=== PATIENT | female | born 1970 | race American Indian/Alaskan Native ===

== ENCOUNTER 2017-09-11 00:25 | Emergency (ER) | payer SELFPAY ==
[2017-09-11] MEDS ORDERED: DUONEB *Not for PRN Use IH ONE ×2 (00:34→00:39)
[2017-09-11] MEDS ORDERED: PEPCID PO ONE (00:37)
[2017-09-11] MEDS ORDERED: PEPCID ONE (00:38)
[2017-09-11] MEDS ORDERED: BENADRYL PO ONE ×2 (00:38)
[2017-09-11 01:18] VITALS: BP 157/87
--- NOTE | 2017-09-11 02:03 | Emergency Department Report ---
HPI - General Chief Complaint: Allergic Reaction Time Seen by Provider: 09/11/17 01:48 - HPI HPI: Patient 46-year-old -[place]i female history of hypertension since the ED tonight status post allergic reaction after eating food at a barbecue states she ate a hotdog and baked beans thyromegaly home she felt her stroke start to swell so she presented to ED. Patient states unsure of trigger denies chest pain or shortness of breath at this time no nausea vomiting no back pain or dizziness no lightheadedness ED Past Medical Hx - Past Medical History Hx Hypertension: Yes - Medications Home Medications: Home Medications Medication Instructions Recorded Confirmed Last Taken Type EPINEPHrine [Epipen 2-Miguel Ángel] 0.3 mg IJ PRN PRN #1 kit 09/11/17 Unknown Rx Famotidine [Pepcid] 20 mg PO BID #14 tablet 09/11/17 Unknown Rx Hydrochlorothiazide [HCTZ] 25 mg PO QDAY 09/11/17 09/11/17 1 Day Ago History ~09/10/17 diphenhydrAMINE [Benadryl CAP] 25 mg PO Q6HR PRN #28 capsule 09/11/17 Unknown Rx predniSONE [Deltasone] 40 mg PO DAILY #10 tab 09/11/17 Unknown Rx ED Review of Systems ROS: Stated complaint: ALLERGIC REACTION Other details as noted in HPI Constitutional: denies: chills, fever Eyes: denies: eye pain, eye discharge, vision change ENT: throat pain. denies: ear pain Respiratory: denies: cough, shortness of breath, wheezing Cardiovascular: denies: chest pain, palpitations Endocrine: no symptoms reported Gastrointestinal: denies: abdominal pain, nausea, diarrhea Genitourinary: denies: urgency, dysuria, discharge Musculoskeletal: denies: back pain, joint swelling, arthralgia Skin: denies: rash, lesions Neurological: denies: headache, weakness, paresthesias Psychiatric: denies: anxiety, depression Hematological/Lymphatic: denies: easy bleeding, easy bruising Physical Exam - Physical Exam Vital Signs: Vital Signs 09/11/17 09/11/17 00:29 01:18 Pulse Rate 99 H 90 Respiratory 22 18 Rate Blood Pressure 197/113 Blood Pressure 157/87 [Left] O2 Sat by Pulse 100 100 Oximetry Physical Exam: Airway an outpatient and no stridor no exudate no lesions uvula is midline no swelling lungs are clear bilateral lungs no wheezing patient up on a chair elevated fast track him back to room without shortness of breath or wheezing discuss anaphylacxis and use of EpiPen with patient patient verbalizes understanding and agreement with saline bowel sounds noticed stable patient with no acute distress at this time will be discharged home in stable condition there is no tongue swelling no shortness of breath no chest pain no nausea vomiting patient is a and O 3 and was oriented with no acute distress at this time ED Course Vital Signs 09/11/17 09/11/17 00:29 01:18 Pulse Rate 99 H 90 Respiratory 22 18 Rate Blood Pressure 197/113 Blood Pressure 157/87 [Left] O2 Sat by Pulse 100 100 Oximetry ED Medical Decision Making - Medical Decision Making allergic reaction ,symptoms resolved Critical care attestation.: If time is entered above; I have spent that time in minutes in the direct care of this critically ill patient, excluding procedure time. ED Disposition Clinical Impression: Allergic reaction Qualifiers: Encounter type: initial encounter Qualified Code(s): T78.40XA - Allergy, unspecified, initial encounter Disposition: - TO HOME OR SELFCARE Is pt being admited?: No Does the pt Need Aspirin: No Condition: Good Instructions: Anaphylaxis (ED), Allergies (ED), Epinephrine (Injection) Prescriptions: diphenhydrAMINE [Benadryl CAP] 25 mg PO Q6HR PRN #28 capsule PRN Reason: allergies EPINEPHrine [Epipen 2-Miguel Ángel] 0.3 mg IJ PRN PRN #1 kit PRN Reason: allergies Famotidine [Pepcid] 20 mg PO BID #14 tablet predniSONE [Deltasone] 40 mg PO DAILY #10 tab Referrals: [facility] [Outside] - 3-5 Days Forms: Work/School Release Form(ED) Time of Disposition: 02:08
== END 2017-09-11 02:14 | disposition home or self-care (01) ==
LOC: ED 00:25
DX: T78.40XA Allergy, unspecified, initial encounter (principal); I10 Essential (primary) hypertension
CPT/HCPCS: 96372; 99283; J2930

== ENCOUNTER 2017-09-20 22:35 | Emergency (ER) | payer SELFPAY ==
[2017-09-20] MEDS ORDERED: BENADRYL ONE (22:41)
[2017-09-20] MEDS ORDERED: PEPCID IV ONE (22:42)
[2017-09-20] MEDS ORDERED: BENADRYL IV ONE (22:57)
[2017-09-20] MEDS ORDERED: PEPCID PO ONE (22:57)
--- NOTE | 2017-09-21 05:37 | Emergency Department Report ---
ED Allergic Reaction HPI - General Chief complaint: Allergic Reaction Stated complaint: ALLERGIC REACTION Time Seen by Provider: 09/21/17 05:36 Source: patient, family Mode of arrival: Ambulatory Limitations: No Limitations - History of Present Illness Initial Comments: Patient here report that she had allergic reaction to [id number] Zantac, she ports on around her face and her throat. Patient was given Solu-Medrol, Benadryl and Pepcid IV and triage area. Patient said this is the second time this happens her over the last couple weeks that she found that she was allergic to red dye and she was here on 09/11/2017 where they treated her for allergic reaction and gave her EpiPen 2 pack. She denies any chest pain or tightness. Denies any stridor or wheezing. Denies any swelling of the throat but she says she felt like her throat was scratchy. She did not follow-up as instructed. Pain is 0-10. Denies any fevers chills or shortness of breath. Patient blood pressure is 170/108 with history of high blood pressure she says she takes hydrochlorothiazide and her blood pressure is usually stable. She also did not fill her EpiPen. MD Complaint: allergic reaction, facial swelling -: This morning Exposure: medication Symptoms: facial swelling (itchy throat) Severity: moderate - Related Data Home Medications Medication Instructions Recorded Confirmed Last Taken Hydrochlorothiazide [HCTZ] 25 mg PO QDAY 09/11/17 09/11/17 1 Day Ago ~09/10/17 Previous Rx's Medication Instructions Recorded Last Taken Type EPINEPHrine [Epipen 2-Miguel Ángel] 0.3 mg IJ PRN PRN #1 kit 09/11/17 Unknown Rx Famotidine [Pepcid] 20 mg PO BID #14 tablet 09/11/17 Unknown Rx predniSONE [Deltasone] 40 mg PO DAILY #10 tab 09/11/17 Unknown Rx Cetirizine HCl [ZyrTEC] 10 mg PO QAM 7 Days #7 capsule 09/21/17 Unknown Rx Prednisone [predniSONE 10 mg 10 mg PO .TAPER 6 Days #1 tab.ds.pk 09/21/17 Unknown Rx (6-Day Pack, 21 Tabs)] diphenhydrAMINE [Benadryl CAP] 50 mg PO Q6HR PRN #16 capsule 09/21/17 Unknown Rx Allergies Allergy/AdvReac Type Severity Reaction Status Date / Time ranitidine [From Zantac] Allergy Swelling Verified 09/21/17 07:34 red dye AdvReac Anaphylaxis Verified 09/21/17 07:34 ED Review of Systems ROS: Stated complaint: ALLERGIC REACTION Other details as noted in HPI Constitutional: denies: chills, fever Eyes: denies: eye pain, eye discharge, vision change ENT: other (scratchy throat and facial swelling to right face. This occurred 1 hour after taking Zantac). denies: ear pain, throat pain, hearing loss, epistaxis, congestion Respiratory: denies: cough, shortness of breath, SOB with exertion, SOB at rest , stridor, wheezing Cardiovascular: denies: chest pain, palpitations, edema, syncope, paroxysmal nocturnal dyspnea Gastrointestinal: denies: abdominal pain, nausea, vomiting, diarrhea Musculoskeletal: denies: back pain, joint swelling, arthralgia Skin: pruritus. denies: rash, lesions Neurological: denies: headache, weakness, numbness, paresthesias, confusion, abnormal gait, vertigo ED Past Medical Hx - Past Medical History Previous Medical History?: Yes Hx Hypertension: Yes Hx GERD: Yes - Surgical History Past Surgical History?: Yes Additional Surgical History: x2 - Family History Family history: diabetes, hypertension - Social History Smoking Status: Never Smoker Substance Use Type: None - Medications Home Medications: Home Medications Medication Instructions Recorded Confirmed Last Taken Type EPINEPHrine [Epipen 2-Miguel Ángel] 0.3 mg IJ PRN PRN #1 kit 09/11/17 Unknown Rx Famotidine [Pepcid] 20 mg PO BID #14 tablet 09/11/17 Unknown Rx Hydrochlorothiazide [HCTZ] 25 mg PO QDAY 09/11/17 09/11/17 1 Day Ago History ~09/10/17 predniSONE [Deltasone] 40 mg PO DAILY #10 tab 09/11/17 Unknown Rx Cetirizine HCl [ZyrTEC] 10 mg PO QAM 7 Days #7 capsule 09/21/17 Unknown Rx Prednisone [predniSONE 10 mg 10 mg PO .TAPER 6 Days #1 tab.ds.pk 09/21/17 Unknown Rx (6-Day Pack, 21 Tabs)] diphenhydrAMINE [Benadryl CAP] 50 mg PO Q6HR PRN #16 capsule 09/21/17 Unknown Rx ED Physical Exam - General Limitations: No Limitations General appearance: alert, in no apparent distress - Head Head exam: Present: atraumatic, normocephalic, normal inspection - Eye Eye exam: Present: normal appearance, PERRL, EOMI. Absent: nystagmus Pupils: Present: normal accommodation - ENT ENT exam: Present: normal orophraynx, mucous membranes moist, TM's normal bilaterally, normal external ear exam, other (right facial swelling and without any erythema or induration.) - Expanded ENT Exam Expanded Ear exam: Present: normal external inspection Mouth exam: Present: normal external inspection, tongue normal. Absent: drooling, trismus, muffled voice, tongue elevation, laceration Teeth exam: Present: normal inspection Throat exam: Positive: normal inspection. Negative: tonsillar erythema, tonsillomegaly, tonsillar exudate, R peritonsillar mass, L peritonsillar mass - Neck Neck exam: Present: normal inspection, full ROM, other (no C-spine tenderness). Absent: tenderness, meningismus, lymphadenopathy - Expanded Neck Exam Expanded Neck exam: Absent: tenderness, midline deformity, anterior neck swelling, tracheal deviation - Respiratory Respiratory exam: Present: normal lung sounds bilaterally. Absent: respiratory distress, wheezes, stridor, chest wall tenderness, accessory muscle use, decreased breath sounds, prolonged expiratory - Cardiovascular Cardiovascular Exam: Present: regular rate, normal rhythm, normal heart sounds. Absent: systolic murmur, diastolic murmur - GI/Abdominal GI/Abdominal exam: Present: soft, normal bowel sounds. Absent: tenderness - Extremities Exam Extremities exam: Present: normal inspection, full ROM, normal capillary refill , other (no clubbing, cyanosis or edema. +2 pulses all extremities and no neurovascular compromise). Absent: tenderness, pedal edema, joint swelling, calf tenderness - Back Exam Back exam: Present: normal inspection, full ROM. Absent: tenderness - Neurological Exam Neurological exam: Present: alert, oriented X3, normal gait, reflexes normal. Absent: motor sensory deficit - Psychiatric Psychiatric exam: Present: normal affect, normal mood - Skin Skin exam: Present: warm, dry, intact, normal color. Absent: rash ED Course Vital Signs 09/20/17 09/21/17 22:54 06:22 Temperature 98.3 F 97.7 F Pulse Rate 106 H 99 H Respiratory 18 17 Rate Blood Pressure 170/108 Blood Pressure 138/94 [Right] O2 Sat by Pulse 100 100 Oximetry - Reevaluation(s) Reevaluation #1: 09/20/17 23:40 Patient with allergic reaction with facial swelling and she received Solu- Medrol 125 mg IV, Pepcid 20 mg IV and Benadryl 50 mg IV with relief. She says she feels better. We'll monitor Reevaluation #2: 09/20/17 01:32 Patient is stable, allergic reaction subsided, no coughing. Lung sounds are clear. No distress. Reevaluation #3: 09/21/17 05:42 Patient stable without any recurrence of allergic reaction. Oral airways patent , uvula is midline. No stridor or wheezing and she says she feels much better. Reevaluation #4: 09/21/17 07:25 Patient stable and observed in the emergency room with no recurrence of allergic reaction. ED Medical Decision Making - Medical Decision Making ED course: This is a 46-year-old female here report that she has allergic reaction from Zantac. She was here on 09/11/2017 reported that she had allergic reaction to red dye she was treated and placed on Benadryl and Medrol Dosepak. She was also given EpiPen which she says she did not fill. Patient present to the emergency room with facial swelling on the right side and complaining that she has some scratchy throat. She did not take any medication for allergic reaction prior to coming to the emergency room per patient. Patient did not follow-up as instructed from her last allergic reaction. This patient was seen and examined by myself. She had facial swelling on the right side without any other abnormalities. She had no oral mucosa abnormality and her lungs were clear. Blood pressure was elevated. She was treated with Benadryl, Solu-Medrol and Pepcid and observed in emergency room and she has no recurrence of allergic reaction. Blood pressure and heart rate is better and she says she is feeling a lot better. Diagnosis discussed the patient. She voiced understanding . A/P 1: Allergic reaction secondary to Zantac per patient 2: Facial swelling from allergic reaction Medication given in emergency room: Patient given and Solu-Medrol 125 mg IV, Benadryl 50 mg IV and Pepcid 20 mg IV for resolution of swelling to facial area. She has no symptoms of allergy. Her lung sounds are clear, no stridor, no wheeze and no coughing. She denies scratchy throat. She says she feels much better. She was observed for several hours after given Solu-Medrol and she is stable. Discharge prescription: Given prescription for prednisone Dosepak, Benadryl and Pepcid. She did not fill her EpiPen 2 packs I told her that she needs to go ahead and fill the prescription. Educated on medication, diagnosis, need to follow up with specialists for allergy testing. Need to follow-up with primary care and she does not have a primary care side told her she is to follow-up with outside [facility]. Educated on the need to keep her EpiPen since she's been having allergic reaction and she hasn't had allergy testing see what she is allergic to. Patient was understanding of discharge teaching. I also instructed her to avoid offending agent. Patient discharged home in stable condition with her family, vital signs are stable and she is afebrile. She is nontoxic in appearance and her symptoms have resolved. Patient instructed to follow up with [facility] tomorrow and also to have them refer her to get allergy tested to see what she is allergic to. I discussed with her that if her symptoms return to include facial swelling, lip swelling, soreness down, hoarseness, difficulty swallowing , drooling, wheezing, coughing, stridor, chest pain or tightness and difficulty breathing to return to the emergency room JULISSA. She voiced understanding. Critical care attestation.: If time is entered above; I have spent that time in minutes in the direct care of this critically ill patient, excluding procedure time. ED Disposition Clinical Impression: Swelling of face Allergic reaction to drug Qualifiers: Encounter type: initial encounter Qualified Code(s): T78.40XA - Allergy, unspecified, initial encounter Disposition: TO HOME OR SELFCARE Is pt being admited?: No Does the pt Need Aspirin: No Condition: Stable Instructions: Allergies (ED), Anaphylaxis (ED) Additional Instructions: Please avoid food containing red dye and Zantac that you took prior to coming to the hospital today. Please follow up with [facility] tomorrow for follow-up visit allergic reaction. They will need to refer you to ruling machine operator for skin testing Please take medication as prescribed and please get your EpiPen prescription filled as you needed if he have another allergic reaction Return to the hospital, if symptoms return and/or if worsen symptoms Prescriptions: Cetirizine HCl [ZyrTEC] 10 mg PO QAM 7 Days #7 capsule diphenhydrAMINE [Benadryl CAP] 50 mg PO Q6HR PRN #16 capsule PRN Reason: Allergic Reaction Prednisone [predniSONE 10 mg (6-Day Pack, 21 Tabs)] 10 mg PO .TAPER 6 Days #1 tab.ds.pk Referrals: [facility] [Outside] - 09/22/17 GAIL ODELL MD [Staff Physician] - 09/23/17 Forms: Work/School Release Form(ED)
[2017-09-21 08:05] VITALS: BP 183/96
== END 2017-09-21 08:05 | disposition home or self-care (01) ==
LOC: ED 22:35
DX: R22.0 Localized swelling, mass and lump, head (principal); T47.0X5A Adverse effect of histamine H2-receptor blockers, initial encounter; K21.9 Gastro-esophageal reflux disease without esophagitis; I10 Essential (primary) hypertension; Z88.8 Allergy status to other drugs, medicaments and biological substances; Y92.89 Other specified places as the place of occurrence of the external cause
CPT/HCPCS: 96374; 99283; J1200; J2930; 96375